=== PATIENT | female | born 2005 | race Two or more races ===

== ENCOUNTER 2024-06-16 04:50 | Emergency (ER) | payer OTHER ==
[~2024-06-16] VITALS: Ht 172.7 cm; Wt 65.8 kg
[2024-06-16] MEDS ORDERED: LEXAPRO5 MG (04:55)
[2024-06-16] MEDS ORDERED: PROMETHAZINE HCL 50 MG/ML AMPUL IM STA (05:13)
[2024-06-16] MEDS ORDERED: METOCLOPRAMIDE HCL 5 MG/ML VIAL IM STA (05:13)
[2024-06-16] MEDS ORDERED: 0.9 % SODIUM CHLORIDE 1,000 ML IV STA (05:14)
[2024-06-16] MEDS ORDERED: FAMOtidine 10 MG/ML (4ML VIAL) IV PUSH STA (05:15)
[2024-06-16] MEDS ORDERED: PANTOPRAZOLE SODIUM 40 MG/VIAL VIAL IV PUSH STA (05:27)
[2024-06-16 06:09] LABS: HEMATOCRIT 42.9 % (36.0-45.00); HEMOGLOBIN 14.9 g/dL (12.0-15.00); MEAN CELL VOLUME 86.6 fL (80.00-100.00); MEAN CORPUSCULAR HEMOGLOBIN 30.1 pg (27.00-32.0); MEAN CORPUSCULAR HGB CONC 34.7 g/dl (32.0-36.0); PLATELET COUNT 223 K/uL (150-450); RED BLOOD COUNT 4.96 M/uL (4.00-6.00); RED CELL DISTRIBUTION WIDTH 12.1 % (11.5-14.5)
[2024-06-16 06:33] LABS: ALBUMIN 4.3 gm/dL (3.4-5.0); BILIRUBIN TOTAL 0.51 mg/dL (0.3-1.2); CALCIUM 9.5 mg/dL (8.5-10.1); CREATININE SERUM 0.96 mg/dL (0.55-1.02); GFR 74.87; GLOBULINA 3.6 G/DL (2.4-3.5); POTASSIUM 3.13 mEq/L (3.5-5.1); TOTAL PROTEIN 7.9 gm/dL (6.4-8.2)
[2024-06-16] MEDS ORDERED: DIPHENHYDRAMINE HCL 50 MG/ML VIAL 1ML IV STA (06:38)
[2024-06-16] MEDS ORDERED: KETOROLAC TROMETHAMINE 30 MG VIAL IV STA (06:39)
== END 2024-06-16 08:26 | disposition home or self-care (01) ==
LOC: ER 04:52
DX: K29.70 Gastritis, unspecified, without bleeding (principal); R11.10 Vomiting, unspecified; Z88.0 Allergy status to penicillin